=== PATIENT | female | born 1990 | race Caucasian/White ===

== ENCOUNTER 2017-10-11 10:20 | Emergency (ER) | payer OTHER, SELFPAY ==
[2017-10-11 10:21] VITALS: BP 152/92; PULSE 91; RESP 17; TEMP 36.6; O2SAT 99; BMI 56.0
--- NOTE | 2017-10-11 11:03 | ED.DCSUM_ITS ---
- ER Visit Summary Date of Service: 10/11/17 Chief Complaint: Head injury History of Present Illness: The patient is a 26 F who states that she was checking in the [employer] when she was on her knees and several 18 packs fell striking on top of her head and the back of her neck. No loss of consciousness. This happened approximately 3 hours prior to arrival. No vomiting. No arm symptoms such as paresthesias. Physical Examination: Afebrile vital stable Gen: Well-nourished well-developed Head: Normocephalic atraumatic Eyes: Perrl EOMI ENT: TMs clear no rhinorrhea moist mucous membranes Neck: Supple no lymphadenopathy no JVD tenderness palpation of the trapezius musculature CVS: Regular rate rhythm no murmurs normal S1-S2 Respiratory: No distress clear to auscultation bilaterally chest nontender Abdomen: Soft nontender nondistended normal bowel sounds no masses Back: Nontender Extremity: Nontender no edema Skin: Normal color no rash Neuro: alert orientated ?3 CN II-XII intact normal strength sensation reflexes gait cerebellar Psych: Normal affect normal mood Test Results: Not indicated Emergency Department Course and Treatment: Patient be discharged home with supportive care. Follow-up with [facility] care as needed. Tylenol ibuprofen for pain. Impression: 1. Scalp contusion 2. Cervical muscle strain This note was generated with [employer] dictation software. It may contain incorrect words, spelling, and punctuation that were not noted in review of the chart prior to signing ED Disposition - Plan for ED Patient: Disposition: Home or Assisted Living Chief Complaint: Head Injury Instructions: ED Contusion Scalp, ED Sprain Strain Neck Referrals: [facility] [GROUP OF PHYSICIANS] - As Needed
== END 2017-10-11 11:22 | disposition home or self-care (01) ==
LOC: ED 11:20
PROVIDERS: Emergency Provider Emergency Medicine
DX: S00.03XA Contusion of scalp, initial encounter (principal); S16.1XXA Strain of muscle, fascia and tendon at neck level, initial encounter; W20.8XXA Other cause of strike by thrown, projected or falling object, initial encounter; Y93.9 Activity, unspecified; Y92.9 Unspecified place or not applicable; Y99.9 Unspecified external cause status
CPT/HCPCS: 99282

== ENCOUNTER → 2017-10-17 16:10 | Outpatient (CLI) | payer OTHER, SELFPAY ==
--- NOTE | 2017-10-17 16:13 | RAD_ITS ---
STUDY: X-RAY - CERVICAL SPINE REASON FOR EXAM: Female, 26 years old. Head injury TECHNIQUE: 3 view(s) of the cervical spine were obtained. COMPARISON: None FINDINGS: Normal anterior atlantoaxial articulation. Normal odontoid process. Normal cervical lordosis. Normal vertebral bodies and endplates. Normal disc space heights. Normal visualized intervertebral neuroforamina. The soft tissue structures are unremarkable. RAD/Cerv Spine 2 or 3 Views IMPRESSION: Normal x-ray examination of the visualized cervical spine. Electronically Signed: Idris Holland MD at 17:24 EDT , Service support ,
== END ==
PROVIDERS: Visit Provider Physician Assistant
DX: S16.1XXA Strain of muscle, fascia and tendon at neck level, initial encounter (principal); X58.XXXA Exposure to other specified factors, initial encounter; Y93.9 Activity, unspecified; Y92.9 Unspecified place or not applicable; Y99.9 Unspecified external cause status
CPT/HCPCS: 72040

== ENCOUNTER 2020-05-14 04:28 | Emergency (ER) | payer SELFPAY ==
[2020-05-14 04:30] VITALS: BP 132/84; PULSE 114; RESP 20; TEMP 36.3; O2SAT 99; BMI 55.5
--- NOTE | 2020-05-14 04:40 | CT_ITS ---
HISTORY: LT FLANK PAIN,PREG TEST WAS NEGATIVE TECHNIQUE: Helically acquired images were obtained of the abdomen and pelvis without oral or IV contrast. A radiation dose optimization technique was used for this scan. COMPARISON: None FINDINGS: # of images incl. paperwork: 542 LUNG BASES: clear. CT abdomen: There is some degenerative disc disease within the lower thoracic spine. The patient has a transitional vertebral bodies. The lowest thoracic vertebral body has tiny riblets. The lowest lumbar vertebral body has an enlarged left transverse process with partial fusion to the sacrum. Degenerative disc disease with enthesophytes is greatest at the plantar calcaneus the T9-T10 level, when counted from the bottom up. . The gallbladder remains. Liver, spleen, pancreas, and adrenal glands are normal. The kidneys are normal. The aorta is normal. There is no intra-or extrahepatic biliary ductal dilatation. CT pelvis: No ascites is present. The the uterus and ovaries are not pathologically enlarged. The appendix is not identified, and may have been resected. The bladder is somewhat decompressed. Bowel gas pattern is normal. CT/Abdomen/Pelvis without Cont IMPRESSION: No acute intra-abdominal or pelvic disease. Individualized dose optimization techniques were used for this CT. at 0542 Reported and signed by: Arturo Jacobs MD Electronically Signed: Arturo Jacobs MD at 5:41 EST Tel , Service support ,
--- NOTE | 2020-05-14 04:42 | ED.DCSUM_ITS ---
History of Present Illness Chief Complaint: Flank Pain Informant: Patient Narrative: 29-year-old female presenting with left flank pain. Patient states that around 20 to 30 hours she developed pain in her left flank. She notes that it wraps around to the left upper quadrant of her abdomen. It is sharp at times burning and others. She denies any urinary or bowel symptoms. No indigestion. No cough shortness of breath. No fevers. Past Medical History - Allergies and Home Meds Allergies/Adverse Reactions: Allergies bee venom protein (honey bee) Allergy (Verified 05/14/20 04:29) Hives cephalexin [From Keflex] Allergy (Verified 05/14/20 04:29) Hives naproxen Allergy (Verified 05/14/20 04:29) Hives Sulfa (Sulfonamide Antibiotics) Allergy (Verified 05/14/20 04:29) Hives Primary Care Physician: Care Physician,No Primary [Primary Care Provider] - Past Medical History: None Surgical History: noncontributory Lives: Spouse/ Significant Other Smoking Status: Never smoker Drugs: None Review of Systems General: Denies: Chills, Fever, Sweats Eyes: Denies: Visual changes - bilaterally, Diplopia ENT: Denies: Rhinorrhea, Sore throat Cardiovascular: Denies: Chest pain, Palpitations Respiratory: Denies: Dyspnea, Cough, Dyspnea on exertion Gastrointestinal: Reports: Abdominal pain, Nausea. Denies: Vomiting, Diarrhea, Melena, Hematochezia Genitourinary: Denies: Dysuria, Hematuria, Frequency Musculoskeletal: Reports: Back pain. Denies: Extremity Pain Skin: Denies: Rash, Wounds Neurological: Denies: Headache, Weakness, Numbness Physical Exam Vital Signs/Narrative: Vital Signs Temp Pulse Resp BP Pulse Ox 05/14/20 04:30 97.4 F L 114 H 20 H 132/84 H 99 Inital Vital Signs reviewed: Yes General: Well nourished, Well developed, Obese, No Acute Distress Head: Normocephalic, Atraumatic Eyes: Perrl, EOMI ENT: Moist mucous membranes, No rhinorrhea Neck: Supple, Nontender Cardiovascular: Regular rate, Regular rhythm, No murmurs Respiratory: No distress, CTA bilaterally, Chest nontender Abdomen: Soft, Nontender, Nondistended, Normal bowel sounds Back: Nontender, Normal Inspection Extremities: Nontender, No edema Skin: Normal color, No rash Neurological: Alert, Oriented x3, Cranial nerves II-XII grossly intact, Normal Strength, Normal Sensation Psychological: Normal affect, Normal Mood Diagnostic/Tx/Re-eval Clinical Impression(s) from Imaging Studies Abdomen/Pelvis CT 05/14/20 04:40 IMPRESSION: No acute intra-abdominal or pelvic disease. Individualized dose optimization techniques were used for this CT. at 0542 Reported and signed by: Arturo Jacobs MD Electronically Signed: Arturo Jacobs MD at 5:41 EST Tel , Service support , Laboratory Last Values WBC 12.3 K/mm3 (4.4-11.0) H 05/14/20 05:10 RBC 4.45 M/mm3 (4.2-5.4) 05/14/20 05:10 Hgb 12.4 g/dL (12.0-15.0) 05/14/20 05:10 Hct 38.6 % (37-47) 05/14/20 05:10 MCV 86.7 fL (81-99) 05/14/20 05:10 MCH 27.9 pg (27.0-32.0) 05/14/20 05:10 MCHC 32.1 g/dL (32-36) 05/14/20 05:10 RDW Std Deviation 39.0 fl (35.1-43.9) 05/14/20 05:10 RDW Coeff of Amanda 12.4 % (11.6-14.6) 05/14/20 05:10 Plt Count 391 K/mm3 (150-450) 05/14/20 05:10 MPV 8.5 fl (6.2-12.0) 05/14/20 05:10 Immature Gran % (Auto) 0.400 % (0.0-0.9) 05/14/20 05:10 Neut % (Auto) 80.7 % (47-70) H 05/14/20 05:10 Lymph % (Auto) 11.4 % (19-41) L 05/14/20 05:10 Jackson % (Auto) 6.7 % (0-10) 05/14/20 05:10 Eos % (Auto) 0.6 % (0-5) 05/14/20 05:10 Baso % (Auto) 0.2 % (0-1) 05/14/20 05:10 Absolute Neuts (auto) 9.9 X10^3/uL (2.0-7.7) H 05/14/20 05:10 Absolute Lymphs (auto) 1.41 X10^3/uL (0.83-4.51) 05/14/20 05:10 Nucleated RBC % 0 % (0-5) 05/14/20 05:10 Sodium 137 mmol/L (136-145) 05/14/20 05:10 Potassium 3.8 mmol/L (3.5-5.1) 05/14/20 05:10 Chloride 105 mmol/L (98-107) 05/14/20 05:10 Carbon Dioxide 29.0 mmol/L (21.0-32.0) 05/14/20 05:10 Anion Gap 3 (5-15) L 05/14/20 05:10 BUN 14 mg/dL (7-18) 05/14/20 05:10 Creatinine 0.69 mg/dL (0.55-1.02) 05/14/20 05:10 Estim Creat Clear Calc 110.20 ml/min 05/14/20 05:10 Est GFR (MDRD) Af Amer 131 mL/min (>60) 05/14/20 05:10 Est GFR (MDRD) Non-Af 108 mL/min (>60) 05/14/20 05:10 BUN/Creatinine Ratio 20.3 RATIO (10-20) H 05/14/20 05:10 Glucose 110 mg/dL (74-106) H 05/14/20 05:10 Calcium 8.9 mg/dL (8.5-10.1) 05/14/20 05:10 Total Bilirubin 0.30 mg/dL (0.20-1.00) 05/14/20 05:10 AST 16 U/L (15-37) 05/14/20 05:10 ALT 33 U/L (13-56) 05/14/20 05:10 Alkaline Phosphatase 102 U/L (45-117) 05/14/20 05:10 Total Protein 7.6 g/dL (6.4-8.2) 05/14/20 05:10 Albumin 3.5 g/dL (3.2-5.0) 05/14/20 05:10 Globulin 4.1 g/dL (2.2-4.2) 05/14/20 05:10 Albumin/Globulin Ratio 0.9 RATIO (0.9-2.4) 05/14/20 05:10 Lipase 68 U/L (73-393) L 05/14/20 05:10 Urine Color Yellow (Yellow) 05/14/20 04:45 Urine Clarity Clear (Clear) 05/14/20 04:45 Urine pH 7.0 (5.0 - 8.0) 05/14/20 04:45 Ur Specific [place] 1.010 (1.002-1.030) 05/14/20 04:45 Urine Protein 30 mg/dl (Negative) H 05/14/20 04:45 Urine Glucose (UA) Normal mg/dl (Normal) 05/14/20 04:45 Urine Ketones Negative mg/dl (Negative) 05/14/20 04:45 Urine Occult Blood 150 /ul (Negative) H 05/14/20 04:45 Urine Nitrite Negative (Negative) 05/14/20 04:45 Urine Bilirubin Negative mg/dL (Negative) 05/14/20 04:45 Urine Urobilinogen Normal mg/dl (Normal) 05/14/20 04:45 Ur Leukocyte Esterase 100 /ul (Negative) H 05/14/20 04:45 Urine RBC 10-25 SEEN /hpf (0-5) 05/14/20 04:45 Urine WBC 10-25 SEEN /hpf (0-5) 05/14/20 04:45 Ur Squamous Epith Cells 10-25 SEEN /hpf (5-10) 05/14/20 04:45 Urine Bacteria 0 SEEN /hpf (None Seen) 05/14/20 04:45 Urine Mucus 0 SEEN /hpf (<or=2+) 05/14/20 04:45 Urine Test Negative Negative 05/14/20 04:45 - Medical Decision Making Urinalysis was contaminated but no overt infection noted. Be established the patient received pain and nausea medication. Basic blood work shows a mild leukocytosis of 12. Normal CMP and lipase. CT the abdomen pelvis does not demonstrate any obvious pathology to explain her pain. At this point patient will be discharged home with instructions to follow-up primary care if not improving return if worsening or new symptoms. ED Disposition - Plan for ED Patient: Disposition: Home or Assisted Living Diagnosis: Left flank pain Instructions: ED Flank Pain, Uncertain Cause Referrals: Rosario Becerril MD [STAFF PHYSICIAN] - 1-2 Days if not improving
[2020-05-14 04:52] LABS: Bacteria 0 SEEN /hpf (None Seen); Mucous, Urine 0 SEEN /hpf (<or=2+)
[2020-05-14] MEDS: Ondansetron 4 MG/2 ML Vial IV (04:52)
[2020-05-14] MEDS: Morphine 4 MG/ML Syringe IV (04:52)
[2020-05-14 04:53] LABS: Color, Urine Yellow (Yellow); Glucose, Dipstick Normal (Normal); Ketone-Dipstick Negative (Negative); Leukocyte Esterase-Dipstick 100 /ul (Negative); Nitrite-Dipstick Negative (Negative); Occult Blood-Urine 150 /ul (Negative); Protein-Dipstick 30 mg/dl (Negative); Urine Bilirubin Dipstick Negative (Negative); Urine Clarity Clear (Clear); Urine Urobilinogen Normal (Normal)
[2020-05-14 04:59] LABS: Red Blood Cells-Urine 10-25 SEEN /hpf (0-5); Squamous Epithelial Cells - UA 10-25 SEEN /hpf (5-10); White Blood Cells 10-25 SEEN /hpf (0-5)
[2020-05-14 05:14] LABS: Internal QC Validated? YES +Cl - CLEAR BKGD; Pregnancy, Urine Negative Negative
[2020-05-14 05:20] LABS: Absolute Lymphocyte Count 1.41 X10^3/uL (0.83-4.51); Absolute Neutrophil Count 9.9 X10^3/uL (2.0-7.7); Basophil# 0.02 X10^3/uL; Basophil% 0.2 % (0-1); Eosinophil# 0.08 X10^3/uL; Eosinophils% 0.6 % (0-5); Hematocrit 38.6 % (37-47); Hemoglobin 12.4 g/dL (12.0-15.0); Lymphocyte # 1.41 X10^3/ul (4.0); Lymphocyte % 11.4 % (19-41); Mean Corp Hgb Conc 32.1 g/dL (32-36); Mean Corpuscular Hgb 27.9 pg (27.0-32.0); Mean Corpuscular Volume 86.7 fL (81-99); Mean Platelet Vol. 8.5 fl (6.2-12.0); Monocyte# 0.83 X10^3/uL; Monocyte% 6.7 % (0-10); NRBC Flagged by Analyzer 0 % (0-5); Neutrophil # 9.94 X10^3/uL (2.7-7.7); Neutrophil % 80.7 % (47-70); Platelet Count 391 K/mm3 (150-450); RBC Distribution Width CV 12.4 % (11.6-14.6); Red Blood Count 4.45 M/mm3 (4.2-5.4); White Blood Count 12.3 K/mm3 (4.4-11.0)
[2020-05-14 05:40] LABS: ALB/GLOB Ratio 0.9 RATIO (0.9-2.4); AST(SGOT) 16 U/L (15-37); Alanine Aminotransfer ALT/SGPT 33 U/L (13-56); Albumin, Serum 3.5 g/dL (3.2-5.0); Alkaline Phosphatase 102 U/L (45-117); Anion Gap 3 (5-15); BUN 14 mg/dL (7-18); BUN/Creat Ratio 20.3 RATIO (10-20); Calcium,Total 8.9 mg/dL (8.5-10.1); Chloride 105 mmol/L (98-107); Creatinine, Serum 0.69 mg/dL (0.55-1.02); EST Glomerular Filtration Rate 108 mL/min (>60); Est Glom Filt Rate - Afr Amer 131 mL/min (>60); Globulin 4.1 g/dL (2.2-4.2); Glucose 110 mg/dL (74-106); Lipase 68 U/L (73-393); Potassium 3.8 mmol/L (3.5-5.1); Protein, Total 7.6 g/dL (6.4-8.2); Sodium Level 137 mmol/L (136-145)
[2020-05-14] MEDS: Ketorolac 15 MG/ML Vial IV (06:14)
[2020-05-14 06:18] VITALS: BP 123/73; PULSE 98; RESP 18; O2SAT 99
== END 2020-05-14 06:31 | disposition home or self-care (01) ==
PROVIDERS: Emergency Provider Emergency Medicine
DX: R10.9 Unspecified abdominal pain (principal)
CPT/HCPCS: 36415; 74176; 80053; 81001; 81025; 83690; 85025; 96374; 96375; 99285; A4216; J2405

== ENCOUNTER 2020-07-22 07:35 | Outpatient (RCR) | payer MEDICARE, SELFPAY | END 2020-09-14 23:59 | LOC: IMMUN 07:35 | PROVIDERS: Referring Provider Family Medicine; Visit Provider Family Medicine | DX: Z23 Encounter for immunization (principal) | CPT/HCPCS: 0001A; 0002A; 91300 ==